=== PATIENT | female | born 1995 | race Two or more races ===

== ENCOUNTER 2024-12-11 06:50 | Emergency (ER) | payer MEDICAID, OTHER ==
[~2024-12-11] VITALS: Ht 162.6 cm; Wt 86.3 kg
--- NOTE | 2024-12-11 07:36 | ED.PDOC ---
GI ASSESSMENT HPI Comments 29 year old female presents to the ED with chief complaint of abdominal pain. Patient reports that she had woken up this morning around 6am with sharp epigastric/mid abdominal pain and burning with associated nausea, vomiting, and diarrhea. Patient relays that she had recent flu-like symptoms over the past 2 weeks and asthma exacerbation with no sense of smell or taste. Patient denies any fever, dysuria, hematuria, flank pain, hematemesis, or SOB. Chief Complaint: Abdominal Pain Time Seen by MD: 06:56 Reviewed Notes: Nurses Notes, Medications, Allergies Allergies: Coded Allergies: NO KNOWN ALLERGIES (Unverified , 12/11/24) Information Source: Patient Mode of Arrival: Wheelchair Timing: Hours Duration: Since onset Prehospital treatment: None Quality: Burning, Sharp Vomitus: Watery Stool: Watery Severity: Moderate Recent: None Recent Hx of: None Pain Location: Epigastric, Periumbilical Modifying Factors: Nothing Associated sign and symptoms: Nausea, Vomiting, Diarrhea, Abdominal Pain Past Medical History PAST MEDICAL HISTORY: Asthma Surgical History: Denies all surgeries STATEMENT CLERKS SUPERVISOR History: No Pertinent STATEMENT CLERKS SUPERVISOR History Family History Family History: Reviewed,noncontributory to illness Social History Smoker: Non-Smoker Alcohol: Occasionally Drugs: Denies Drug Use Lives In: Home Constitutional: denies: chills, diaphoresis, fatigue, fever, malaise, sweats, weakness, others EENTM: denies: blurred vision, double vision, ear bleeding, ear discharge, ear drainage, ear pain, ear ringing, eye pain, eye redness, hearing loss, mouth pain, mouth swelling, nasal discharge, nose bleeding, nose congestion, nose pain, photophobia, tearing, throat pain, throat swelling, voice changes, others Respiratory: denies: cough, hemoptysis, orthopnea, SOB at rest, shortness of breath, SOB with excertion, stridor, wheezing, others Cardiovascular: denies: chest pain, dizzy spells, diaphoresis, Dyspnea on exertion, edema, irregular heart beat, left arm pain, lightheadedness, palpitations, PND, syncope, others Gastrointestinal: reports: abdominal pain, diarrhea, nausea, vomiting; denies: abdomen distended, blood streaked bowels, constipated, dysphagia, difficulty swallowing, hematemesis, melena, poor appetite, poor fluid intake, rectal bleeding, rectal pain, others Genitourinary: denies: abnormal vagina bleeding, burning, dyspareunia, dysuria, flank pain, frequency, hematuria, incontinence, pain, , vagina discharge, urgency, others Neurological: denies: dizziness, fainting, headache, left sided numbness, left sided weakness, numbness, paresthesia, pre-existing deficit, right sided numbness, right sided weakness, seizure, speech problems, tingling, tremors, weakness, others Musculoskeletal: denies: back pain, gout, joint pain, joint swelling, muscle pain, muscle stiffness, neck pain, others Integumetry: denies: bruises, change in color, change in hair/nails, dryness, laceration, lesions, lumps, rash, wounds, others Allergic/Immunocompromised: denies: Difficulty Healing, Frequent Infections, Hives, Itching, others Hematologic/Lymphatic: denies: anemia, blood clots, easy bleeding, easy bruising, swollen glands, others Endocrine: denies: excessive hunger, excessive sweating, excessive thirst, excessive urination, flushing, intolerance to cold, intolerance to heat, unexplained weight gain, unexplained weight loss, others Psychiatric: denies: anxiety, bipolar disorder, depression, hopeless, panic disorder, schizophrenia, sleepless, suicidal, others All Other Systems: Reviewed and Negative Physical Exam General Appearance: Moderate Distress HEENT: Normal ENT Inspection, PERRL/EOMI Neck: Full Range of Motion, Non-Tender, Normal, Normal Inspection Respiratory: Chest Non-Tender, Lungs Clear, No Accessory Muscle Use, No Respiratory Distress, Normal Breath Sounds Cardiovascular: No Edema, No JVD, No Murmur, No Gallop, Normal Peripheral Pulses, Regular Rate/Rhythm Breast Exam: Deferred Gastrointestinal: No Organomegaly, No Pulsatile Mass, Normal Bowel Sounds, Soft, Other (Epigastric/mid abdominal tenderness to palpation.) Genitalia: Deferred Pelvic: Deferred Rectal: Deferred Extremities: No calf tenderness, Normal capillary refill, Normal inspection, Normal range of motion, Non-tender, No pedal edema Musculoskeletal : Apperance: Normal Neurologic: Alert, windows technical specialist II-XII nml as Tested, No Motor Deficits, Normal Affect, Normal Mood, No Sensory Deficits Cerebellar Function: Normal Reflexes: Normal Skin: Dry, Normal Color, Warm Lymphatic: No Adenopathy Was a procedure done? Was a procedure done?: No GI differential Dx Differential Diagnosis: Cholecystitis, Gastritis/PUD, Gastroenteritis, UTI, Dehydration, Electrolyte Imbalance, Food Poisoning, Bacterial, Viral, Hypovolemia X-Ray, Labs, Meds, VS Vital Signs Date Time Temp Pulse Resp B/P (MAP) Pulse Ox O2 Delivery O2 Flow Rate FiO2 12/11/24 10:00 97.4 64 15 95/51 (66) 93 97.4 12/11/24 08:18 72 16 97/67 12/11/24 07:55 88 20 98 Room Air* 0 21 12/11/24 07:46 98.3 100 20 98/64 (75) 98 98.3 12/11/24 07:46 100 20 98 Room Air 12/11/24 07:44 18 20 98/61 12/11/24 07:17 98.6 100 19 106/68 (81) 98 98.6 Lab Test 12/11/24 11:34 12/11/24 07:29 Range/Units Sodium Level 140 138 136-145 mmol/L Potassium Level 4.2 3.5 3.5-5.1 mmol/L Chloride Level 111 H 107 98-107 mmol/L Carbon Dioxide Level 21 15 L 20-31 mmol/L Anion Gap 8 16 H 5-15 Blood Urea Nitrogen 7 L 7 L 9-23 mg/dL Creatinine 0.80 0.97 0.550-1.02 mg/dL Glomerular Filtration Rate Calc 103 82 >90 mL/min BUN/Creatinine Ratio 8.8 L 7.2 L 10.0-20.0 Serum Glucose 132 H 210 H 74-106 mg/dL Calcium Level 8.5 L 10.3 8.7-10.4 mg/dL White Blood Count 13.6 H 4.4-10.8 10^3/uL Red Blood Count 5.81 H 4.0-5.20 10^6/uL Hemoglobin 18.0 H 12.2-16.2 g/dL Hematocrit 54.0 H 36.0-46.0 % Mean Corpuscular Volume 92.9 80.0-100.0 fL Mean Corpuscular Hemoglobin 31.1 28.0-32.0 pg Mean Corpuscular Hemoglobin Concent 33.4 32.0-36.0 g/dL Red Cell Distribution Width 13.1 11.8-14.3 % Platelet Count 397 140-450 10^3/uL Mean Platelet Volume 8.3 6.9-10.8 fL Neutrophils (%) (Auto) 63.4 37.0-80.0 % Lymphocytes (%) (Auto) 25.5 10.0-50.0 % Monocytes (%) (Auto) 6.5 0.0-12.0 % Eosinophils (%) (Auto) 3.6 0.0-7.0 % Basophils (%) (Auto) 1.0 0.0-2.0 % Neutrophils # (Auto) 8.6 1.6-8.6 10 ^3/uL Lymphocytes # (Auto) 3.5 0.4-5.4 10 ^3/uL Monocytes # (Auto) 0.9 0-1.3 10 ^3/uL Eosinophils # (Auto) 0.5 0-0.8 10 ^3/uL Basophils # (Auto) 0.1 0-0.2 10 ^3/uL Nucleated Red Blood Cells 0.0 % Total Bilirubin 0.4 0.2-1.0 mg/dL Aspartate Amino Transferase (AST) 16 13-40 U/L Alanine Aminotransferase (ALT) 16 7-40 U/L Alkaline Phosphatase 103 46-116 U/L Total Protein 8.0 5.7-8.2 g/dL Albumin 5.0 H 3.2-4.8 g/dL Lipase 39 12-53 U/L Current Medications Medications (Trade) Dose Ordered Sig/Jennifer Route Start Time Stop Time Status Last Admin Ondansetron HCl (Zofran) 4 mg ONCE ONCE IV 12/11/24 07:30 12/11/24 07:31 DC 12/11/24 07:44 Sodium Chloride 1,000 ml @ 1,000 mls/hr Q1H ONCE IVB 12/11/24 07:30 12/11/24 08:29 DC 12/11/24 07:45 Hydromorphone HCl (Dilaudid Injection) 1 mg ONCE ONCE IV 12/11/24 07:30 12/11/24 07:31 DC 12/11/24 07:44 Al Hydrox/Mg Hydrox/Simethicone (Maalox Plus) 30 ml ONCE ONCE PO 12/11/24 07:30 12/11/24 07:31 DC 12/11/24 07:42 Belladonna Alkaloids/ Phenobarbital ( Elixir) 5 ml ONCE ONCE PO 12/11/24 07:30 12/11/24 07:31 DC 12/11/24 07:42 Lidocaine HCl (Xylocaine 2% Viscous) 10 ml ONCE ONCE PO 12/11/24 07:30 12/11/24 07:31 DC 12/11/24 07:42 Sodium Chloride 1,000 ml @ 1,000 mls/hr Q1H ONCE IV 12/11/24 08:30 12/11/24 09:29 DC 12/11/24 08:32 CT Abd/Pel: Findings: Evaluation of vasculature and solid organs is limited due to lack of intravenous contrast use. Lung Bases: Lower lobe opacities noted which may reflect atelectasis series. Visualized portions of the heart and pericardium are unremarkable. Liver: The liver is normal in size. No focal lesions. Gallbladder and Biliary Tree: The gallbladder is unremarkable. No intrahepatic or extrahepatic biliary ductal dilatation. Spleen: Unremarkable Pancreas: The pancreas is grossly unremarkable. Adrenal Glands: Unremarkable Kidneys: Kidneys are unremarkable without calculi or hydronephrosis. GI tract: The stomach is grossly normal in appearance. Fluid distended small bowel loops with wall thickening and mild mesenteric edema. No transition to collapsed bowel loops. Liquid stool throughout the colon. Normal caliber appendix. Peritoneum/mesentery/retroperitoneum. No evidence of free intraperitoneal air. N o ascites. No evidence of suspicious lymphadenopathy. Abdominal Wall: Unremarkable. Vasculature: The visualized abdominal aorta is normal in size and caliber. Evaluation of abdominal and pelvic vessels is limited due to lack of intravenous contrast. Urinary Bladder: Grossly unremarkable for degree of distention. Pelvic Organs: Unremarkable Musculoskeletal: No aggressive focal bony lesions, acute fractures or dislocation. IMPRESSION: 1. Findings compatible with enterocolitis. Gallbladder US: FINDINGS: The liver demonstrates homogenous echotexture without focal mass lesions. The liver measures 16.9 cm. There is hepatopedal color doppler flow in the main portal vein. There is no intrahepatic biliary ductal dilatation. The gallbladder is without evidence of stone or sludge. The gallbladder wall measures 0.2 cm. The common bile duct measures 0.5 cm. There is a negative sonographic Lopes's sign. The right kidney measures 9.7 cm. The right kidney is normal in contour, size, and shape. The echogenicity is normal. There is no hydronephrosis. The pancreas is not well visualized due to overlying bowel gas. Visualized portions of the aorta and inferior vena cava are unremarkable. No evidence of ascites. IMPRESSION: 1. No evidence of gallstones or acute cholecystitis. 21-year-old female presents here with abdominal pain. Patient was most tender to the epigastric and mid abdomen. Considered possible small bowel obstruction, pancreatitis, cholecystitis, gastritis, small-bowel obstruction. At this time a CT abdomen pelvis has been done which demonstrates evidence of enterocolitis. Ultrasound with no evidence of gallstones or acute cholecystitis. However blood work demonstrated significant anion gap 16 had a CO2 of 15. Suspect likely dehydration with a metabolic acidosis this time patient has been given IV fluids. I have repeated the blood work, and her anion gap has improved in her CO2 is also improved. I have given her a prescription for Zofran for home. I strongly advised her it is very important you maintain hydration. Patient was agreeable to the plan. Advised patient return back to the ER if she is unable to keep fluids. While in the ER she was placed on ED observation while admitted for repeat blood work and Continue to reassess patient Images Reviewed?: Images reviewed and evaluated by me Time of 1ST Reevaluation: 07:56 Reevaluation 1ST: Unchanged Patient Education/Counseling: Diagnosis, Treatment Family Education/Counseling: No Family Present Departure 1 Departure Time of Disposition: 12:05 Impression: Primary Impression: Enterocolitis Additional Impressions: Dehydration Metabolic acidosis Hyperglycemia Disposition: 01 HOME / SELF CARE / HOMELESS Condition: Stable Additional Instructions: Follow up with PCP within 2-3 days. e-Prescriptions Ondansetron Odt 4MG Tab (ZOFRAN PO) 4 Mg Tb 4 MG PO Q6HPRN PRN, #14 TAB ODT TAB-DISSOLVE IN MOUTH, THEN SWALLOW Prov: YOGESH CASTILLO MD 12/11/24 Discharged With: Self, Spouse Critical Care Note Critical Care Time?: No Stability Stability form required: No Heart Score Heart Score: Heart Score Response (Comments) Value History N/A 0 EKG N/A 0 Age N/A 0 Risk Factors N/A 0 Troponin N/A 0 Total 0 I personally scribed for YOGESH CASTILLO MD ([email or web address]) on 12/11/24 at 07:50. Electronically submitted by Nadeem Reeves ([email or web address]). I personally scribed for YOGESH CASTILLO MD ([email or web address]) on 12/11/24 at 08:21. Electronically submitted by Nadeem Reeves ([email or web address]). I personally scribed for YOGESH CASTILLO MD ([email or web address]) on 12/11/24 at 08:22. Electronically submitted by Nadeem Reeves ([email or web address]). I personally scribed for YOGESH CASTILLO MD ([email or web address]) on 12/11/24 at 08:33. Electronically submitted by Nadeem Reeves ([email or web address]). I personally scribed for YOGESH CASTILLO MD ([email or web address]) on 12/11/24 at 12:08. Electronically submitted by Nadeem Reeves ([email or web address]). I personally scribed for YOGESH CASTILLO MD ([email or web address]) on 12/11/24 at 12:08. Electronically submitted by Nadeem Reeves ([email or web address]). YOGESH CASTILLO MD Dec 11, 2024 07:36
[2024-12-11 07:40] LABS: Basophils # (auto) 0.1 10 ^3/uL (0-0.2); Eosinophils # (auto) 0.5 10 ^3/uL (0-0.8); Lymphocytes # (auto) 3.5 10 ^3/uL (0.4-5.4); Mean Corpuscular Hgb Conc. 33.4 g/dL (32.0-36.0)
[2024-12-11] MEDS: LIDOCAINE VISCOUS 2% 15ML UD PO ONE (07:42)
[2024-12-11] MEDS: MAALOX PLUS or MAALOX 30 ML PO ONE (07:42)
[2024-12-11] MEDS: DONNATAL 5ml ORAL Elix (BELLADONNA ALK-PHENOBARB) PO ONE (07:42)
[2024-12-11 07:43] LABS: Eosinophils % (auto) 3.6 % (0.0-7.0); Lymphocytes % (auto) 25.5 % (10.0-50.0); Mean Corpuscular Hemoglobin 31.1 pg (28.0-32.0); Mean Corpuscular Volume 92.9 fL (80.0-100.0); Monocytes # (auto) 0.9 10 ^3/uL (0-1.3); Monocytes % (auto) 6.5 % (0.0-12.0); Neutrophils # (auto) 8.6 10 ^3/uL (1.6-8.6); Neutrophils % (auto) 63.4 % (37.0-80.0); Platelet Count (auto) 397 10^3/uL (140-450); Red Blood Cells 5.81 10^6/uL (4.0-5.20); Red Cell Distribution Width 13.1 % (11.8-14.3); White Blood Cell 13.6 10^3/uL (4.4-10.8)
[2024-12-11] MEDS: HYDROmorphone HCL 2 MG/ML VL/or syr IV ONE (07:44)
[2024-12-11] MEDS: ONDANSETRON HCL 4 MG/2 ML VIAL IV ONE (07:44)
[2024-12-11] MEDS: SODIUM CHLORIDE 0.9% 1,000 ML IVB ONE (07:45)
[2024-12-11 07:55] VITALS: PULSE 88; RESP 20; O2SAT 98
[2024-12-11 08:01] LABS: Alanine Aminotransferase 16 U/L (7-40); Alkaline Phosphatase 103 U/L (46-116); Anion Gap 16 (5-15); Aspartate Aminotransferase 16 U/L (13-40); BUN/Creatinine Ratio 7.2 (10.0-20.0); Calcium 10.3 mg/dL (8.7-10.4); Sodium 138 mmol/L (136-145)
--- NOTE | 2024-12-11 08:01 | DVH ---
Exam: CT CT AB PEL WO CON-NO ORAL OR IV History: abd pain Comparison Study: None available at time of dictation. Technique: Multidetector spiral CT of the abdomen and pelvis was performed from lung bases to pubic s ymphysis. Imaging was performed without intravenous contrast. Coronal and sagittal multiplanar reform ats were obtained from the axial data set by the technologist. Radiation Dose : 1. Abdomen/Pelvis: CTDIvol 15.67 mGy, DLP 739.45 mGy*cm. Findings: Evaluation of vasculature and solid organs is limited due to lack of intravenous contrast use. Lung Bases: Lower lobe opacities noted which may reflect atelectasis series. Visualized portions of t he heart and pericardium are unremarkable. Liver: The liver is normal in size. No focal lesions. Gallbladder and Biliary Tree: The gallbladder is unremarkable. No intrahepatic or extrahepatic biliar y ductal dilatation. Spleen: Unremarkable Pancreas: The pancreas is grossly unremarkable. Adrenal Glands: Unremarkable Kidneys: Kidneys are unremarkable without calculi or hydronephrosis. GI tract: The stomach is grossly normal in appearance. Fluid distended small bowel loops with wall th ickening and mild mesenteric edema. No transition to collapsed bowel loops. Liquid stool throughout t he colon. Normal caliber appendix. Peritoneum/mesentery/retroperitoneum. No evidence of free intraperitoneal air. No ascites. No evidenc e of suspicious lymphadenopathy. Abdominal Wall: Unremarkable. Vasculature: The visualized abdominal aorta is normal in size and caliber. Evaluation of abdominal a nd pelvic vessels is limited due to lack of intravenous contrast. Urinary Bladder: Grossly unremarkable for degree of distention. Pelvic Organs: Unremarkable Musculoskeletal: No aggressive focal bony lesions, acute fractures or dislocation. IMPRESSION: 1. Findings compatible with enterocolitis.
[2024-12-11 08:02] LABS: Bilirubin, Total 0.4 mg/dL (0.2-1.0); Blood Urea Nitrogen 7 mg/dL (9-23); Carbon Dioxide 15 mmol/L (20-31); Chloride 107 mmol/L (98-107); Glucose 210 mg/dL (74-106); Potassium 3.5 mmol/L (3.5-5.1)
--- NOTE | 2024-12-11 08:31 | DVH ---
EXAM: US GALLBLADDER INDICATION: ro kirsty TECHNIQUE: Multiple real-time sonographic images were obtained of the right upper quadrant. COMPARISON: None FINDINGS: The liver demonstrates homogenous echotexture without focal mass lesions. The liver measure s 16.9 cm. There is hepatopedal color doppler flow in the main portal vein. There is no intrahepatic biliary ductal dilatation. The gallbladder is without evidence of stone or sludge. The gallbladder wall measures 0.2 cm. The common bile duct measures 0.5 cm. There is a negative sonographic Lopes's sign. The right kidney measures 9.7 cm. The right kidney is normal in contour, size, and shape. The echo genicity is normal. There is no hydronephrosis. The pancreas is not well visualized due to overlying bowel gas. Visualized portions of the aorta and inferior vena cava are unremarkable. No evidence of ascites. IMPRESSION: 1. No evidence of gallstones or acute cholecystitis.
[2024-12-11] MEDS: SODIUM CHLORIDE 0.9% 1,000 ML IV ONE (08:32)
[2024-12-11 08:53] LABS: Lipase 39 U/L (12-53)
[2024-12-11 10:00] VITALS: BP 95/51; PULSE 64; RESP 15; TEMP 97.4; O2SAT 93
[2024-12-11 11:58] LABS: Potassium 4.2 mmol/L (3.5-5.1); Sodium 140 mmol/L (136-145)
[2024-12-11 11:59] LABS: Anion Gap 8 (5-15); Carbon Dioxide 21 mmol/L (20-31)
[2024-12-11 12:03] LABS: Calcium 8.5 mg/dL (8.7-10.4); Chloride 111 mmol/L (98-107)
[2024-12-11 12:04] LABS: BUN/Creatinine Ratio 8.8 (10.0-20.0)
[2024-12-11 12:05] LABS: Blood Urea Nitrogen 7 mg/dL (9-23); Glucose 132 mg/dL (74-106)
[2024-12-11] MEDS ORDERED: ZOFR4T PO (12:49)
== END 2024-12-11 13:06 | disposition home or self-care (01) ==
LOC: ER 06:50
DX: K52.9 Noninfective gastroenteritis and colitis, unspecified (principal); E86.0 Dehydration; E87.20 Acidosis, unspecified; R73.9 Hyperglycemia, unspecified; J45.909 Unspecified asthma, uncomplicated
CPT/HCPCS: 36415; 74176; 76705; 80048; 80053; 83690; 85025; 96361; 96374; 96375; 99285; J1171; J2405; J7030